=== PATIENT | male | born 1980 | race African-American/Black ===

== ENCOUNTER 2020-02-06 18:41 | Emergency (ER) | payer SELFPAY ==
--- NOTE | 2020-02-06 22:11 | EDPHYS ---
Physician Documentation [facility] Name: Basil Jamison Age: 39 yrs Sex: Male : 1980 Arrival Date: 02/06/2020 Time: 18:44 Bed 25 Private MD: ED Physician Kishor Daniel HPI: 02/05 21:51 This 39 yrs old Black Male presents to ER via Ambulatory with complaints of Fatigue mh7 w/body aches. 21:51 Body aches, fatigue, diarrhea. Onset: The symptoms/episode began/occurred 5 day(s) ago. mh7 Severity of symptoms: At their worst the symptoms were mild today, in the emergency department the symptoms have improved moderately. Historical: - Allergies: 19:17 No Known Allergies; ca1 - Home Meds: 19:17 lisinopril-hydrochlorothiazide 20-12.5 mg oral tab 1 tab twice a day [Active]; ca1 - PMHx: 19:17 Hypertension; ca1 - PSHx: 19:17 None; ca1 - Immunization history:: Adult Immunizations up to date. - Social history:: Smoking status: Patient reports the use of cigarette tobacco products, denies chronic smoking, but will smoke occasionally. ROS: 21:51 Constitutional: Negative for fever, chills, and weight loss, Eyes: Negative for injury, mh7 pain, redness, and discharge, ENT: Negative for injury, pain, and discharge, Neck: Negative for injury, pain, and swelling, Cardiovascular: Negative for chest pain, palpitations, and edema, Respiratory: Negative for shortness of breath, cough, wheezing, and pleuritic chest pain, Back: Negative for injury and pain, : Negative for injury, bleeding, discharge, and swelling, MS/Extremity: Negative for injury and deformity, Skin: Negative for injury, rash, and discoloration, Neuro: Negative for headache, weakness, numbness, tingling, and seizure, Psych: Negative for depression, anxiety, suicide ideation, homicidal ideation, and hallucinations, Allergy/Immunology: Negative for hives, rash, and allergies, Endocrine: Negative for neck swelling, polydipsia, polyuria, polyphagia, and marked weight changes, Hematologic/Lymphatic: Negative for swollen nodes, abnormal bleeding, and unusual bruising. Exam: 21:51 Constitutional: This is a well developed, well nourished patient who is awake, alert, mh7 and in no acute distress. Head/Face: Normocephalic, atraumatic. Eyes: Pupils equal round and reactive to light, extra-ocular motions intact. Lids and lashes normal. Conjunctiva and sclera are non-icteric and not injected. Cornea within normal limits. Periorbital areas with no swelling, redness, or edema. ENT: Nares patent. No nasal discharge, no septal abnormalities noted. Tympanic membranes are normal and external auditory canals are clear. Oropharynx with no redness, swelling, or masses, exudates, or evidence of obstruction, uvula midline. Mucous membranes moist. Neck: Trachea midline, no thyromegaly or masses palpated, and no cervical lymphadenopathy. Supple, full range of motion without nuchal rigidity, or vertebral point tenderness. No Meningismus. Chest/axilla: Normal chest wall appearance and motion. Nontender with no deformity. No lesions are appreciated. Cardiovascular: Regular rate and rhythm with a normal S1 and S2. No gallops, murmurs, or rubs. Normal PMI, no JVD. No pulse deficits. Respiratory: Lungs have equal breath sounds bilaterally, clear to auscultation and percussion. No rales, rhonchi or wheezes noted. No increased work of breathing, no retractions or nasal flaring. Abdomen/GI: Soft, non-tender, with normal bowel sounds. No distension or tympany. No guarding or rebound. No evidence of tenderness throughout. Back: No spinal tenderness. No costovertebral tenderness. Full range of motion. Skin: Warm, dry with normal turgor. Normal color with no rashes, no lesions, and no evidence of cellulitis. MS/ Extremity: Pulses equal, no cyanosis. Neurovascular intact. Full, normal range of motion. Neuro: Awake and alert, GCS 15, oriented to person, place, time, and situation. Cranial nerves II-XII grossly intact. Motor strength 5/5 in all extremities. Sensory grossly intact. Cerebellar exam normal. Normal gait. Psych: Awake, alert, with orientation to person, place and time. Behavior, mood, and affect are within normal limits. Vital Signs: 19:14 BP 136 / 85; Pulse 77; Resp 16 S; Temp 97(TE); Pulse Ox 100% on R/A; Weight 131.54 kg ca1 (R); Height 5 ft. 9 in. (175.26 cm) (R); 19:14 Body Mass Index 42.83 (131.54 kg, 175.26 cm) ca1 MDM: 21:38 Patient medically screened. [facility] 22:09 Differential Diagnosis flu, viral syndrome, gastroenteritis, diarrhea. Data reviewed: [facility] vital signs, nurses notes. Data interpreted: Pulse oximetry: on room air is 100 %. Interpretation: normal. Counseling: I had a detailed discussion with the patient and/or guardian regarding: the historical points, exam findings, and any diagnostic results supporting the discharge/admit diagnosis, the need for outpatient follow up, to return to the emergency department if symptoms worsen or persist or if there are any questions or concerns that arise at home. Refusal of service: The patient/guardian displays adequate decision making capability and despite a detailed discussion of alternatives, benefits, risks, and consequences refuses: all lab tests. Administered Medications: No medications were administered Disposition: 02/06/20 22:11 Discharged to Home. Impression: Viral Syndrome. - Condition is Stable. - Discharge Instructions: Viral Gastroenteritis, Adult, [id number]. - Work release form, Family Work Release, Medication Reconciliation Form, Thank You Letter, Antibiotic Education, Prescription Opioid Use form. - Follow up: Private Physician; When: 2 - 3 days; Reason: Worsening of condition, Recheck today's complaints, Re-evaluation by your physician. - Problem is new. - Symptoms have improved. Signatures: Mayuri Jamison RN RN ls4 Heide Najera RN RN ca1 Kishor Daniel MD MD [facility] Corrections: (The following items were deleted from the chart) 22:25 22:11 02/06/2020 22:11 Discharged to Home. Impression: Viral Syndrome. Condition is ls4 Stable. Forms are Work release form, Family Work Release, Medication Reconciliation Form, Thank You Letter, Antibiotic Education, Prescription Opioid Use. Follow up: Private Physician; When: 2 - 3 days; Reason: Worsening of condition, Recheck today's complaints, Re-evaluation by your physician. Problem is new. Symptoms have improved. [facility]
--- NOTE | 2020-02-06 22:11 | ER ---
Nurse's Notes [facility] Name: Basil Jamison Age: 39 yrs Sex: Male : 1980 Arrival Date: 02/06/2020 Time: 18:44 Bed 25 Private MD: Diagnosis: Viral Syndrome Presentation: 02/05 19:14 Chief complaint: Patient states: "I just need a covid test. I haven't been feeling so ca1 good, achy for about 3-4 days". Denies cough. Denies SOB. Denies Fever. Denies N/V/Abdl pain. Reports "a little diarrhea". Coronavirus screen: Proceed with normal triage. Patient denies a cough. Patient denies shortness of breath or difficulty breathing. Patient denies measured and/or subjective temperature greater than 100.4F prior to today's visit. Patient denies travel on a cruise ship or to a country the [facility] currently lists as an affected area. Patient denies contact with known and/or suspected case of COVID-19. Ebola Screen: Patient negative for fever greater than or equal to 101.5 degrees Fahrenheit, and additional compatible Ebola Virus Disease symptoms Patient denies exposure to infectious person. Patient denies travel to an Ebola-affected area in the 21 days before illness onset. No symptoms or risks identified at this time. Initial Sepsis Screen: Does the patient meet any 2 criteria? No. Patient's initial sepsis screen is negative. Does the patient have a suspected source of infection? No. Patient's initial sepsis screen is negative. Risk Assessment: Do you want to hurt yourself or someone else? Patient reports no desire to harm self or others. 19:14 Method Of Arrival: Ambulatory ca1 19:14 Acuity: KEVIN 3 ca1 19:14 Onset of symptoms was February 06, 2020. ca1 Historical: - Allergies: 19:17 No Known Allergies; ca1 - Home Meds: 19:17 lisinopril-hydrochlorothiazide 20-12.5 mg oral tab 1 tab twice a day [Active]; ca1 - PMHx: 19:17 Hypertension; ca1 - PSHx: 19:17 None; ca1 - Immunization history:: Adult Immunizations up to date. - Social history:: Smoking status: Patient reports the use of cigarette tobacco products, denies chronic smoking, but will smoke occasionally. Vital Signs: 19:14 BP 136 / 85; Pulse 77; Resp 16 S; Temp 97(TE); Pulse Ox 100% on R/A; Weight 131.54 kg ca1 (R); Height 5 ft. 9 in. (175.26 cm) (R); 19:14 Body Mass Index 42.83 (131.54 kg, 175.26 cm) ca1 ED Course: 18:44 Patient arrived in ED. as 19:16 Triage completed. ca1 19:17 Arm band placed on right wrist. [facility] [place] 21:00 Kishor Daniel MD is Attending Physician. 7 21:27 Mayuri Jamison, RN is Primary Nurse. ls4 Administered Medications: No medications were administered Outcome: 22:11 Discharge ordered by . [facility] 22:25 Patient left the ED. ls4 Signatures: Nichole Burdick as Mayuri Jamison, RN RN 4 Heide Najear RN RN ca1 Kishor Daniel MD MD [facility]
[2020-02-06 22:46] VITALS: BP 136/85; TEMP 97; O2SAT 100
== END 2020-02-06 22:25 | disposition home or self-care (01) ==
LOC: ER 18:41
DX: B34.9 Viral infection, unspecified (principal)
CPT/HCPCS: 99281